=== PATIENT | male | born 1980 | race Caucasian/White ===

== ENCOUNTER 2016-06-24 18:02 | Inpatient (IN) | payer MEDICAID ==
[~2016-06-24] VITALS: Ht 182.9 cm; Wt 105.1 kg
[2016-06-24] MEDS ORDERED: ACETAMINOPHEN 325 MG TAB PO PRN (22:05)
[2016-06-24] MEDS ORDERED: ALU/MAG/SIM 30 ML UDC PO PRN (22:05)
[2016-06-24] MEDS ORDERED: TRAZODONE 50 MG TAB PO PRN (22:05)
[2016-06-24] MEDS ORDERED: MAG HYDROX 30 ML UDC PO PRN (22:05)
[2016-06-24] MEDS ORDERED: LORAZEPAM 2 MG TAB PO PRN (22:05)
[2016-06-24] MEDS ORDERED: HALOPERIDOL 5 MG TAB PO PRN (22:05)
[2016-06-24] MEDS ORDERED: LORAZEPAM 2 MG/ML VIAL IM PRN (22:05)
[2016-06-24] MEDS ORDERED: HALOPERIDOL 5 MG/ML VIAL IM PRN (22:05)
[2016-06-24] MEDS ORDERED: DIPHENHYDRAMINE 50 MG CAP PO PRN (22:05)
[2016-06-24] MEDS ORDERED: DIPHENHYDRAMINE 50 MG/ML VIAL IM PRN (22:05)
[2016-06-24] MEDS ORDERED: LEVETIRACETAM 250 MG TAB PO SCH (22:50)
[2016-06-24] MEDS ORDERED: NON-FORMULARY MEDICATION PO SCH (22:50)
[2016-06-24] MEDS ORDERED: *PINK BRACELET XX ONE (23:10)
[2016-06-24] MEDS: QUEtiapine 25 MG TAB PO SCH (23:12)
[2016-06-24] MEDS: TRIUMEG PO SCH (23:13)
[2016-06-24] MEDS: LEVETIRACETAM 500 MG TAB PO SCH (23:13)
[2016-06-24] MEDS: NICOTINE 21 MG/24 HR TRANSDERM SCH (23:22)
[2016-06-24 23:32] VITALS: BMI 17.9; BMI 31.4
[2016-06-25 00:25] VITALS: BP_SYST 138; RESP 18; TEMP 98.4
[2016-06-25] MEDS: [UNRECOGNIZED DRUG - OTHER] XX SCH ×2 (08:00→20:00)
[2016-06-25] MEDS: *HOME MEDS IN MED CART XX SCH ×2 (08:00→20:00)
[2016-06-25] MEDS: NICOTINE 21 MG/24 HR TRANSDERM SCH (09:00)
[2016-06-25] MEDS ORDERED: CITALOPRAM 20 MG TAB PO SCH (09:00)
[2016-06-25 09:42] VITALS: BP_SYST 129; RESP 20; TEMP 97.5
[2016-06-25] MEDS: DULoxetine 30 MG CAP PO SCH (11:48)
[2016-06-25 19:00] VITALS: BP_SYST 123; RESP 16; TEMP 98.1
[2016-06-25] MEDS: TRIUMEG PO SCH (21:21)
[2016-06-25] MEDS: LEVETIRACETAM 500 MG TAB PO SCH (21:23)
[2016-06-25] MEDS: QUEtiapine 25 MG TAB PO SCH (21:23)
[2016-06-26] MEDS: [UNRECOGNIZED DRUG - OTHER] XX SCH ×2 (08:15→20:00)
[2016-06-26] MEDS: *HOME MEDS IN MED CART XX SCH ×2 (08:15→20:00)
[2016-06-26 08:28] VITALS: BP_SYST 125; RESP 20; TEMP 97.8
[2016-06-26] MEDS: NICOTINE 21 MG/24 HR TRANSDERM SCH (09:00)
[2016-06-26] MEDS ORDERED: hydrOXYzine PAM 50 MG CAP PO PRN (10:45)
[2016-06-26] MEDS: ARIPiprazole 5 MG TABLET PO SCH (11:47)
[2016-06-26] MEDS: DULoxetine 30 MG CAP PO SCH (11:48)
[2016-06-26 19:31] VITALS: BP_SYST 153; RESP 18; TEMP 98.5
[2016-06-26] MEDS: TRIUMEG PO SCH (20:48)
[2016-06-26] MEDS: LEVETIRACETAM 500 MG TAB PO SCH (20:48)
[2016-06-26 21:30] VITALS: RESP 16
[2016-06-27 07:09] VITALS: BP_SYST 133; RESP 20; TEMP 97.6
[2016-06-27] MEDS: [UNRECOGNIZED DRUG - OTHER] XX SCH (07:46)
[2016-06-27] MEDS: *HOME MEDS IN MED CART XX SCH (07:46)
[2016-06-27] MEDS: NICOTINE 21 MG/24 HR TRANSDERM SCH (07:46)
[2016-06-27] MEDS: DULoxetine 30 MG CAP PO SCH (08:42)
[2016-06-27] MEDS: ARIPiprazole 5 MG TABLET PO SCH (08:42)
[2016-06-27 11:28] VITALS: BP_SYST 133; RESP 20; TEMP 97.6
[2016-06-27 14:21] VITALS: BP_SYST 133; RESP 20; TEMP 97.6
== END 2016-06-27 14:44 | disposition home or self-care (01) | DRG 885 ==
LOC: ENRESERVTM → ENRESERVDT → ER 18:02 → EMR 21:06 → PSY 21:50
PROVIDERS: ADMIT Psychiatry & Neurology Psychiatry; ATTEND Psychiatry & Neurology Psychiatry
CPT/HCPCS: 36415; 80053; 81003; 84439; 84443; 85025; 85610